=== PATIENT | male | born 1985 | race Caucasian/White ===

== ENCOUNTER 2021-02-25 02:18 | Inpatient (IN) | payer OTHER ==
[~2021-02-25] VITALS: Ht 175.3 cm; Wt 73.5 kg
[2021-02-25 02:32] VITALS: BP_SYST 140; BP_SYST 141; BP_DIAS 73
[2021-02-25] MEDS ORDERED: ZOFRAN IV STA (02:38)
[2021-02-25] MEDS ORDERED: ZOFRAN ONE (02:38)
[2021-02-25] MEDS ORDERED: TORADOL ONE (02:38)
[2021-02-25] MEDS ORDERED: TORADOL IV STA (02:38)
[2021-02-25] MEDS ORDERED: NS 1000ML 1,000 ML ONE ×2 (02:38→03:28)
[2021-02-25 02:47] LABS: BASOPHIL % 0.2 % (0.0-0.2); EOSINOPHIL # 0.2 10^3/uL (0.0-0.2); EOSINOPHIL % 0.9 % (0.0-5.0); LYMPHOCYTES # 4.65 10^3/uL1 (1.0-4.8); LYMPHOCYTES % 26.7 % (24.0-44.0); MEAN CORP HGB 29.7 pg (26-34); MONOCYTES # 1.1 10^3/uL (0.3-0.8); MONOCYTES % 6.4 % (5.0-12.0); NEUTROPHIL # 11.4 10^3/uL (1.8-7.7); NEUTROPHILS % 65.5 % (41.0-85.0); PLATELET COUNT 258 10^3/uL (150-400); RED CELL DISTRIBUTION WIDTH 12.1 % (11.5-14.5)
--- NOTE | 2021-02-25 02:50 | ER.PDOC ---
General Chief Complaint: Abdomen Pain Stated Complaint: VOMITING Time seen by MD: 02:29 Source: patient, family Exam Limitations: no limitations History of Present Illness Timing/Duration: 24 hours, getting worse Severity/Quality: severe, cramping Radiation: other (generalized) Associated Symptoms: diaphoresis, fever/chills, nausea/vomiting Exacerbated by: movements, walking, cough, food Relieved By: nothing Allergies: Coded Allergies: No Known Allergies (Unverified , 02/25/21) Home Meds No Active Prescriptions or Reported Meds Vital Signs First Vital Signs Date Time Temp Pulse Resp B/P (MAP) Pulse Ox O2 Delivery O2 Flow Rate FiO2 02/25/21 02:32 97.9 62 18 98 02/25/21 02:32 140/73 (95) Room Air Last Vital Signs Date Time Temp Pulse Resp B/P (MAP) Pulse Ox O2 Delivery O2 Flow Rate FiO2 02/25/21 02:32 97.9 62 18 140/73 (95) 98 Room Air Past Medical History Medical History: no pertinent history Surgical History: hip, knee Family History Significant Family History: no pertinent family hx Social History Alcohol Use: none Drug Use: none Constitutional: chills EENTM: no symptoms reported Respiratory: no symptoms reported Cardiovascular: no symptoms reported Gastrointestinal: abdominal pain, nausea, poor appetite, poor fluid intake, vomiting Genitourinary: no symptoms reported Musculoskeletal: joint pain, muscle pain, muscle stiffness, other (cramping) Skin: no symptoms reported Psychiatric/Neurological: depressed Endocrine: no symptoms reported All Other Systems: Reviewed and Negative Physical Exam General Appearance: Moderate Distress, Thin HEENT: PERRL/EOMI, Normal ENT Inspection, TMs Normal, Pharynx Normal Neck: Non-Tender, Full Range of Motion, Supple, Normal Inspection Respiratory: lungs clear, normal breath sounds, no respiratory distress Cardiovascular: Normal Peripheral Pulses, Regular Rate, Rhythm, No Edema, No Gallop, No JVD, No Murmur Gastrointestinal: Hypoactive bowel sounds, Guarding, Rebound, Tenderness Back: Normal Inspection, No CVA Tenderness, No Vertebral Tenderness Extremities: Normal Range of Motion, Non-Tender, Normal Inspection, No Pedal Edema, No Calf Tenderness, Normal Capillary Refill, Pelvis Stable Neurologic/Psychiatric: Alert, Oriented x 3 Skin: Diaphoresis, Pallor Results/Orders Results/Orders Orders - JANEY SANDOVAL MD 0.9 % Sodium Chloride (Ns 1000ml) (02/25/21 02:38) Ondansetron Hcl/Pf (Zofran) (02/25/21 02:38) Ketorolac Tromethamine (Toradol) (02/25/21 02:38) Cbc With Auto Diff (02/25/21 02:38) Comprehensive Metabolic Panel (02/25/21 02:38) Amylase (02/25/21 02:38) Lipase (02/25/21 02:38) Helicobacter Pylori (02/25/21 02:38) PT (02/25/21 02:38) Ct Abd/Pel With Iv Contrast (02/25/21 02:38) Partial Thromboplastin Time. (02/25/21 02:38) Urinalysis (02/25/21 02:38) Ondansetron Hcl/Pf (Zofran) (02/25/21 02:38) Ketorolac Tromethamine (Toradol) (02/25/21 02:38) 0.9 % Sodium Chloride (Ns 1000ml) (02/25/21 03:00) Magnesium (02/25/21 02:42) 0.9 % Sodium Chloride (Ns 100ml) (02/25/21 03:21) Promethazine Hcl (Phenergan) (02/25/21 03:22) Promethazine Hcl (Phenergan) (02/25/21 03:18) 0.9 % Sodium Chloride (Ns 1000ml) (02/25/21 03:30) Lorazepam (Ativan) (02/25/21 03:24) 0.9 % Sodium Chloride (Ns 1000ml) (02/25/21 03:28) Lorazepam (Ativan) (02/25/21 03:29) Prochlorperazine Edisylate (Compazine) (02/25/21 04:58) Admit Orders (02/25/21 04:54) Vital Signs Date Time Temp Pulse Resp B/P (MAP) Pulse Ox O2 Delivery O2 Flow Rate FiO2 02/25/21 02:32 97.9 62 18 140/73 (95) 98 Room Air 02/25/21 02:32 97.9 62 18 02/25/21 02:32 97.9 62 18 98 Administered Medications Medications (Trade) Dose Ordered Sig/Kedar Route PRN Reason Start Time Stop Time Status Last Admin Dose Admin Ketorolac Tromethamine (Toradol) 30 mg OT STAT IV 02/25/21 02:38 02/25/21 02:43 DC 02/25/21 02:43 30 MG Lorazepam (Ativan) 0.5 mg STAT STAT IV 02/25/21 03:24 02/25/21 03:26 DC 02/25/21 03:33 0.5 MG Ondansetron HCl (Zofran) 4 mg OT STAT IV 02/25/21 02:38 02/25/21 02:43 DC 02/25/21 02:43 4 MG Promethazine HCl (Phenergan) 25 mg OT STAT IV 02/25/21 03:18 02/25/21 03:24 DC 02/25/21 03:27 25 MG Sodium Chloride 1,000 ml @ 0 mls/hr Q0M ONCE IV 02/25/21 03:00 02/25/21 03:01 DC 02/25/21 02:43 1,200 MLS/HR Sodium Chloride 1,000 ml @ 0 mls/hr Q0M ONCE IV 02/25/21 03:30 02/25/21 03:31 DC 02/25/21 03:30 0 MLS/HR Laboratory Tests Test 02/25/21 02:34 02/25/21 03:10 White Blood Count 17.4 10^3/uL (4.5-11.0) H Red Blood Count 4.75 10^6/uL (4.50-5.90) Hemoglobin 14.1 g/dL (13.9-16.3) Hematocrit 40.8 % (37.0-53.0) Mean Corpuscular Volume 85.9 fL (78-100) Mean Corpuscular Hemoglobin 29.7 pg (26-34) Mean Corpuscular Hemoglobin Concent 34.6 g/dL (33-36.5) Red Cell Distribution Width 12.1 % (11.5-14.5) Platelet Count 258 10^3/uL (150-400) Mean Platelet Volume 12.0 fL (7.8-11.0) H Neutrophils (%) (Auto) 65.5 % (41.0-85.0) Lymphocytes (%) (Auto) 26.7 % (24.0-44.0) Monocytes (%) (Auto) 6.4 % (5.0-12.0) Neutrophils # (Auto) 11.4 10^3/uL (1.8-7.7) H Lymphocytes # (Auto) 4.65 10^3/uL1 (1.0-4.8) Monocytes # (Auto) 1.1 10^3/uL (0.3-0.8) H Absolute Immature Granulocyte (auto 0.06 10^3 u/L (0-2) Absolute Eosinophils (auto) 0.2 10^3/uL (0.0-0.2) Immature Granulocytes % 0.30 % (0.00-0.50) Eosinophils % 0.9 % (0.0-5.0) Basophils % 0.2 % (0.0-0.2) Basophils # 0.0 10^3/uL (0.0-0.1) Prothrombin Time 11.2 SEC (9.6-12.0) Prothrombin Time INR (Non-Therap) 1.0 Activated Partial Thromboplast Time 23.2 SEC (24.67-30.72) Sodium Level 141 mmol/L (132-145) Potassium Level 3.1 mmol/L (3.6-5.2) L Chloride Level 102.0 mmol/L (96-109) Carbon Dioxide Level 27.6 mmol/L (20.0-32) Anion Gap 14.5 Blood Urea Nitrogen 12 mg/dL (7-18) Creatinine 1.23 mg/dL (0.59-1.40) Estimated GFR () 81.0 (>/=60) Est GFR (CKD-EPI)(Non-Afr [place]) 67.0 (>/=60) BUN/Creatinine Ratio 9.0 Glucose Level 133 mg/dL (70-110) H Calcium Level 9.5 mg/dL (8.4-10.5) Magnesium Level 1.7 mg/dL (1.8-2.4) L Total Bilirubin 0.3 mg/dL (0.2-1.0) Aspartate Amino Transferase (AST) 24 U/L (0-35) Alanine Aminotransferase (ALT) 33 U/L (12-78) Alkaline Phosphatase 89 U/L (50-136) Total Protein 7.3 g/dL (6.4-8.2) Albumin 4.3 g/dL (3.4-5.0) Globulin 3.0 Albumin/Globulin Ratio 1.433 Amylase Level 56 U/L (25-115) Lipase 135 U/L (114-286) Helicobacter pylori Screen NEGATIVE (NEGATIVE) Urine Collection Type CCMS Urine Color YELLOW Urine Appearance CLEAR Urine Bilirubin NEGATIVE (NEGATIVE) Urine Ketones NEGATIVE (NEGATIVE) Urine Specific [place] 1.020 (1.005-1.030) Urine pH 5.5 (4.5-8.0) Urine Protein NEGATIVE (NEGATIVE) Urine Urobilinogen 0.2 E.U./dL (0.2) Urine Nitrate NEGATIVE (NEGATIVE) Urine Leukocyte Esterase NEGATIVE (NEGATIVE) Urine Glucose (Auto)(UA) NEGATIVE (NEGATIVE) Urine Blood SMALL (NEGATIVE) H Urine RBC 2-5 RBC/HPF (NONE SEEN) Urine WBC NONE SEEN WBC/HPF (0-2) Urine Squamous Epithelial Cells RARE #/HPF (FEW) Urine Bacteria RARE (NONE SEEN) Progress Progress pt with mild improvement in nausea and vomiting but short lived. continues to vomit bile. discussed lab results and option of admission for further workup. he is in agreement. Consult/PCP Time Consult/PCP Called: 04:37 Consult/PCP: Dr Jennifer roberts to admit Reason/Comments: discussed case/intractable vomiting. recommended fluids, rocephin, blood cx ER DEPART Departure Time of Disposition: 04:42 Disposition: 09 ADMITTED INPATIENT Impression: Primary Impression: Hypokalemia Additional Impressions: Hypomagnesemia Abdominal pain Intractable vomiting with nausea Condition: Stable Referrals: PCP,UNKNOWN (PCP) PRIMARY CARE PROVIDER Scripts No Active Prescriptions or Reported Meds Duration or Time Spent with Pa: 35 Problem Qualifiers JANEY SANDOVAL MD Feb 25, 2021 02:50
[2021-02-25] MEDS ORDERED: NS 1000ML 1,000 ML IV ONE ×3 (03:00→05:30)
[2021-02-25 03:03] LABS: CALCIUM 9.5 mg/dL (8.4-10.5); CARBON DIOXIDE 27.6 mmol/L (20.0-32)
[2021-02-25] MEDS ORDERED: PHENERGAN IV STA (03:18)
[2021-02-25] MEDS ORDERED: NS 100ML 100 ML IV ONE (03:21)
[2021-02-25] MEDS ORDERED: PHENERGAN ONE (03:22)
[2021-02-25] MEDS ORDERED: ATIVAN IV STA (03:24)
--- NOTE | 2021-02-25 03:25 | NUR ---
RAD SODA TESTER LOKI CALLED AT THIS TIME. NOTIFIED OF CT ORDER.
[2021-02-25] MEDS ORDERED: ATIVAN ONE (03:29)
[2021-02-25 03:42] LABS: BILIRUBIN,URINE NEGATIVE (NEGATIVE); UA COLOR YELLOW
[2021-02-25 03:43] LABS: UROBILINOGEN,URINE 0.2 E.U./dL (0.2)
--- NOTE | 2021-02-25 04:27 | DIREP ---
PROCEDURE:CT ABDOMEN/PELVIS W/ CONTRAST COMPARISON:None. INDICATIONS:abd pain/vomiting TECHNIQUE:Axial images were created through the abdomen and pelvis with non-ionic intravenous contrast material. No oral contrast was administered. Sagittal and coronal reconstructions were performed from source images. FINDINGS: LUNG BASES:No suspicious airspace consolidation or pleural effusion. LIVER:Suspect small hepatic cysts. BILIARY:Previous cholecystectomy. PANCREAS:No suspicious pancreatic abnormality. SPLEEN:The spleen is not significantly enlarged. No focal splenic lesion identified. ADRENALS:The adrenal glands are unremarkable. URINARY TRACT:No hydronephrosis or suspicious renal lesion. AORTA/VASCULAR:No aneurysmal dilatation. RETROPERITONEUM:No suspicious retroperitoneal lymphadenopathy. BOWEL/MESENTERY:Mild distal esophageal wall thickening may reflect esophagitis from reported vomiting. No evidence for small bowel obstruction. Mild scattered distal colonic diverticulosis without evidence to suggest acute diverticulitis. [id number] fecal burden. Normal appendix. No free air. ABDOMINAL WALL:No significant hernia. PELVIC ORGANS:Urinary bladder is decompressed, limiting evaluation. Prostate is not enlarged. No free fluid. BONES:No acute abnormality. CONCLUSION: 1. No acute intra-abdominal abnormality. No evidence for small bowel obstruction. Mild scattered distal colonic diverticulosis without evidence to suggest acute diverticulitis. [id number] fecal burden. Normal appendix. 2. Additional findings as discussed above. Dictated by: Manish Guillermo M.D. On 02/25/2021 at 04:20 AM
--- NOTE | 2021-02-25 04:45 | NUR ---
HOSPITALIST DR. SANDOVAL ON PHONE WITH HOSPITALIST AT THIS TIME REGARDING POSSIBLE ADMISSION.
[2021-02-25] MEDS ORDERED: COMPAZINE ONE (04:58)
--- NOTE | 2021-02-25 05:01 | NUR ---
COMPAZINE 10MG IV ADMINISTERED AT THIS TIME FOR CONTINUED VOMITING. PATIENT CONTINUES DRY HEAVING WITH BILE VOMIT NOTED IN BASIN.
[2021-02-25] MEDS ORDERED: ROCEPHIN 1,000 MG in NS 100ML 100 ML IV STA (05:05)
[2021-02-25] MEDS ORDERED: COMPAZINE IV STA (05:07)
[2021-02-25 05:53] VITALS: BP 126/83
--- NOTE | 2021-02-25 05:58 | NUR ---
Pt arrived to floor at 0545. Pt has been medicated for nausea in the ED. Pt is drowsy from the medication. Vital signs taken and are stable. Pt is resting comfortably at this time.
[2021-02-25 07:12] VITALS: BP 126/79
[2021-02-25] MEDS ORDERED: D5LR 1000ML/KCL 40MEQ 1,000 ML IV ONE (09:00)
--- NOTE | 2021-02-25 09:00 | PCM.HP ---
HISTORY & PHYSICAL HISTORY & PHYSICAL DATE OF ADMISSION: February 25, 2021 CHIEF COMPLAINT: Abdominal pain and intractable vomiting for 2 days HISTORY OF PRESENT ILLNESS: 35-year-old male with previous history of chronic pain syndrome on hydrocodone 08/15/2025 3 times a day with Ambien of 10 mg once a day was apparently visiting from [place] to [facility] to him see his sister,And he claims 2 days prior to this admission he developed abdominal pain associated with nausea and vomiting biliary vomitus and passing flatus no bowel movement for last 2 days no diarrhea and no fever chills or rigors and denies any dysuria hematuria or increased frequency of urination Patient denies any runny nose cough sore throat headache photophobia or neck stiffness Denies any trauma to head or any other part of the Body ALLERGIES: No known drug allergies CURRENT MEDICATIONS: Hydrocodone 08/15/2025 1 tablet 3 times a day chronic use Ambien 10 mg once a day PAST MEDICAL HISTORY: Chronic pain syndrome, cholecystectomy for acute cholecystitis SOCIAL HISTORY: Denies smoking alcohol or street drug use currently unemployed living in [place] Living with his and no contact history of similar illnesses FAMILY HISTORY: Family history denies any serious medical problem including inflammatory bowel disease peptic ulcer disease cancer and hypercoagulable status REVIEW OF SYSTEMS: Denies headache have nausea and vomiting bilious vomitus for last 2 days and denies any sore throat runny nose swallowing difficulties chest pain shortness of breath cough or wheezing denies any dysuria hematuria or increased frequency of urination complaining of abdominal pain , Diffuse and not relieved by vomiting aggravated by direct pressureNot tolerating p.o. intake well denies any diarrhea No skin rashes no joint pain VITAL SIGNS: Vital Signs Date Time Temp Pulse Resp B/P (MAP) Pulse Ox O2 Delivery O2 Flow Rate FiO2 02/25/21 07:12 98.5 67 16 126/79 (95) 98 Room Air PHYSICAL EXAMINATION: Patient is awake alert appeared to be in distress but less interactive .Alert awake oriented HEENT: Pupil round react light no neck stiffness no cervical lymphadenopathy no thyromegaly neck supple Lungs: Clear to auscultation bilaterally no rales or rhonchi heard Heart: S1-S2 heard no murmur gallop noted Abdomen: soft questionable diffuse tenderness in all 4 quadrants and voluntary guarding present No masses felt organomegaly not appreciated (Patient not very cooperative with examination) Extremities :no edema no calf tenderness Skin: No rashes noted RECRUITMENT DIRECTOR: Patient is awake alert oriented responding appropriately but hesitant to interact and noncooperative with examination LABORATORY DATA: Laboratory Tests Test 02/25/21 02:34 02/25/21 03:10 White Blood Count 17.4 10^3/uL (4.5-11.0) Red Blood Count 4.75 10^6/uL (4.50-5.90) Hemoglobin 14.1 g/dL (13.9-16.3) Hematocrit 40.8 % (37.0-53.0) Mean Corpuscular Volume 85.9 fL (78-100) Mean Corpuscular Hemoglobin 29.7 pg (26-34) Mean Corpuscular Hemoglobin Concent 34.6 g/dL (33-36.5) Red Cell Distribution Width 12.1 % (11.5-14.5) Platelet Count 258 10^3/uL (150-400) Mean Platelet Volume 12.0 fL (7.8-11.0) Neutrophils (%) (Auto) 65.5 % (41.0-85.0) Lymphocytes (%) (Auto) 26.7 % (24.0-44.0) Monocytes (%) (Auto) 6.4 % (5.0-12.0) Neutrophils # (Auto) 11.4 10^3/uL (1.8-7.7) Lymphocytes # (Auto) 4.65 10^3/uL1 (1.0-4.8) Monocytes # (Auto) 1.1 10^3/uL (0.3-0.8) Absolute Immature Granulocyte (auto 0.06 10^3 u/L (0-2) Absolute Eosinophils (auto) 0.2 10^3/uL (0.0-0.2) Immature Granulocytes % 0.30 % (0.00-0.50) Eosinophils % 0.9 % (0.0-5.0) Basophils % 0.2 % (0.0-0.2) Basophils # 0.0 10^3/uL (0.0-0.1) Prothrombin Time 11.2 SEC (9.6-12.0) Prothrombin Time INR (Non-Therap) 1.0 Activated Partial Thromboplast Time 23.2 SEC (24.67-30.72) Sodium Level 141 mmol/L (132-145) Potassium Level 3.1 mmol/L (3.6-5.2) Chloride Level 102.0 mmol/L (96-109) Carbon Dioxide Level 27.6 mmol/L (20.0-32) Anion Gap 14.5 Blood Urea Nitrogen 12 mg/dL (7-18) Creatinine 1.23 mg/dL (0.59-1.40) Estimated GFR () 81.0 (>/=60) Est GFR (CKD-EPI)(Non-Afr [place]) 67.0 (>/=60) BUN/Creatinine Ratio 9.0 Glucose Level 133 mg/dL (70-110) Calcium Level 9.5 mg/dL (8.4-10.5) Magnesium Level 1.7 mg/dL (1.8-2.4) Total Bilirubin 0.3 mg/dL (0.2-1.0) Aspartate Amino Transf (AST/SGOT) 24 U/L (0-35) Alanine Aminotransferase (ALT/SGPT) 33 U/L (12-78) Alkaline Phosphatase 89 U/L (50-136) Total Protein 7.3 g/dL (6.4-8.2) Albumin 4.3 g/dL (3.4-5.0) Globulin 3.0 Albumin/Globulin Ratio 1.433 Amylase Level 56 U/L (25-115) Lipase 135 U/L (114-286) Helicobacter pylori Screen NEGATIVE (NEGATIVE) Urine Collection Type CCMS Urine Color YELLOW Urine Appearance CLEAR Urine Bilirubin NEGATIVE (NEGATIVE) Urine Ketones NEGATIVE (NEGATIVE) Urine Specific [place] 1.020 (1.005-1.030) Urine pH 5.5 (4.5-8.0) Urine Protein NEGATIVE (NEGATIVE) Urine Urobilinogen 0.2 E.U./dL (0.2) Urine Nitrate NEGATIVE (NEGATIVE) Urine Leukocyte Esterase NEGATIVE (NEGATIVE) Urine Glucose (Auto)(UA) NEGATIVE (NEGATIVE) Urine Blood SMALL (NEGATIVE) Urine RBC 2-5 RBC/HPF (NONE SEEN) Urine WBC NONE SEEN WBC/HPF (0-2) Urine Squamous Epithelial Cells RARE #/HPF (FEW) Urine Bacteria RARE (NONE SEEN) IMAGING: CT of the abdomen and pelvis shows no acute intraabdominal abnormalities no evidence of small bowel obstruction mild scattered distal colonic diverticulosis without diverticulitis mild to moderate fecal burden normal appendix SUMMARY: 35-year-old male with previous history of chronic pain syndrome developed acute onset of GI intolerance and abdominal pain No evidence of intra abdominal or pelvic acute illnesses As per CT scan ASSESSMENT/PLAN: 1. Acute GI intolerance with diffuse abdominal pain nausea and vomiting suspect Acute gastritis versus medication overdose versus withdrawal symptoms 2. Chronic pain Syndrome with chronic narcotic medication intake 3. Electrolyte imbalance will replace and recheck in the morning Plan of management: Start on IV fluid Phenergan as needed Protonix IV continue empiric antibiotic until the culture is finalized, drug screen Pancrease check lipase level and reevaluate the patient in a.m. AUGUSTO VINES MD Feb 25, 2021 09:00
[2021-02-25 11:35] VITALS: BP 109/62
[2021-02-25] MEDS: PROTONIX IV IV SCH (12:17)
[2021-02-25] MEDS: REGLAN IV SCH ×3 (12:17→21:46)
[2021-02-25] MEDS: BENTYL IM PRN ×2 (12:30→12:31)
[2021-02-25] MEDS ORDERED: DURAGESIC 25MCG TD SCH (13:00)
--- NOTE | 2021-02-25 13:00 | NUR ---
IV START 20G IV STARTED IN RIGHT FA AT THIS TIME ASEPTIC TECHNIQUE. BLOOD RETURN NOTED. SECURED WITH TAPE AND TEGADERM. PT DOES NOT FOLLOW COMMANDS. A/OX4. ON IV STICK PT JUMPED AND MOVED AROUND. PT BEGAN GROWLING AT NURSE. ATTEMPTED TO REDIRECT PT. PT STARTED SCREAMING. UPON COMPLETION OF IV INSERTION PT YELLED "FUCK YOU, FUCK YOU ALL" AT THIS NURSE. IN ROOM AND STATED TO PT "YOU NEED TO BE NICE. SHE DID A PERFECT IV. YOU APOLOGIZE TO HER AND THANK HER" PT GROWLED AT AND STATES "THANK YOU"
[2021-02-25] MEDS: D5LR 1000ML/KCL 20MEQ 1,000 ML IV SCH (15:45)
--- NOTE | 2021-02-25 15:46 | NUR ---
THIS NURSE HELD D5LR WITH 20 OF K DUE TO D5LR WITH 40 OF K RUNNING. NON-ADMIN.
[2021-02-25 16:32] VITALS: BP 111/61
[2021-02-25] MEDS: MORPHINE SULFATE IV PRN (21:46)
[2021-02-25 23:54] VITALS: BP 112/70
[2021-02-26] MEDS ORDERED: NS 25ML 25 ML IV ONE ×4 (00:07→19:15)
[2021-02-26] MEDS: PHENERGAN IV PRN ×3 (00:10→19:19)
[2021-02-26] MEDS: TUMS PO PRN ×2 (02:40→08:17)
[2021-02-26] MEDS: D5LR 1000ML/KCL 20MEQ 1,000 ML IV SCH ×2 (02:40→14:07)
[2021-02-26] MEDS: MORPHINE SULFATE IV PRN ×4 (02:41→19:19)
[2021-02-26 04:38] LABS: EOSINOPHIL % 0.1 % (0.0-5.0); LYMPHOCYTES # 1.47 10^3/uL1 (1.0-4.8); LYMPHOCYTES % 10.2 % (24.0-44.0); MEAN CORP HGB 30.1 pg (26-34); MONOCYTES # 0.8 10^3/uL (0.3-0.8); MONOCYTES % 5.4 % (5.0-12.0); NEUTROPHIL # 12.1 10^3/uL (1.8-7.7); NEUTROPHILS % 84.1 % (41.0-85.0); PLATELET COUNT 187 10^3/uL (150-400); RED CELL DISTRIBUTION WIDTH 12.3 % (11.5-14.5)
[2021-02-26 04:54] LABS: CALCIUM 8.8 mg/dL (8.4-10.5); CARBON DIOXIDE 28.2 mmol/L (20.0-32)
[2021-02-26 05:00] VITALS: BP 113/71
[2021-02-26] MEDS: REGLAN IV SCH ×3 (05:59→21:39)
[2021-02-26] MEDS ORDERED: MORPHINE SULFATE ONE (06:33)
[2021-02-26] MEDS: PROTONIX IV IV SCH (08:17)
[2021-02-26 09:00] VITALS: BP 119/67
[2021-02-26] MEDS ORDERED: MAGNESIUM SULF 4 G/100 ML BAG 100 ML IV ONE (09:00)
[2021-02-26] MEDS: PHOS-NAK PACKET PO SCH ×2 (09:27→21:39)
[2021-02-26] MEDS ORDERED: MAGNESIUM SULFATE 50 ML IV ONE ×2 (09:27→13:54)
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
[2021-02-26 16:51] VITALS: BP 105/61
[2021-02-26] MEDS ORDERED: MYLANTA PO PRN (18:30)
[2021-02-26 20:24] VITALS: BP 134/75
[2021-02-26] MEDS ORDERED: AMBIEN PO PRN (21:00)
--- NOTE | 2021-02-27 00:03 | NUR ---
VITALS PT REFUSED TO HAVE VITALS TAKEN AT THIS TIME.
[2021-02-27 01:06] VITALS: BP 119/82
--- NOTE | 2021-02-27 01:11 | NUR ---
PAIN MEDS PT REFUSED VITALS AT MIDNIGHT, AND HAS BEEN SLEEPING PEACEFULLY SINCE HE RECEIVED HIS LAST PAIN MEDS WITH NO S/S OF ANY KIND OF PAIN OR NAUSEA. PT JUST REQUESTED MORE PAIN AND NAUSEA MEDS HIS BLOOD PRESSURE IS 119/82 AND HIS PULSE IS 67. I DISCUSSED WITH THE PT THAT THE DOCTOR WOULD PREFER HE NOT TAKE THE NARCOTIC PAIN MEDS IF HE COULD HOLD OFF ON THEM. HE IS NOT DUE FOR PHENERGAN FOR ANOTHER HOUR AND HE WAS GIVEN REGLAN WITH HIS EVENING MEDS ALSO. PT STARTED DRY HEAVING AFTER HE WAS TOLD THAT HE WAS NOT DUE FOR NAUSEA MEDICATION FOR ANOTHER HOUR. I OFFERED HIM ICE CHIPS AND OFFERED TO HELP IN ANY WAY i COULD OUTSIDE OF MEDICATION, BUT PT REFUSED TO RESPOND WHEN I ASKED. HE IS NOW RESTING PEACEFULLY IN HIS ROOM, WILL CONTINUE TO MONITOR.
[2021-02-27] MEDS ORDERED: NS 25ML 25 ML IV ONE ×2 (02:15→09:16)
[2021-02-27] MEDS: MORPHINE SULFATE IV PRN ×2 (02:23→09:33)
[2021-02-27] MEDS: D5LR 1000ML/KCL 20MEQ 1,000 ML IV SCH (02:23)
[2021-02-27] MEDS: PHENERGAN IV PRN ×2 (02:24→09:33)
[2021-02-27 04:23] VITALS: BP 130/80
[2021-02-27 04:27] LABS: BASOPHIL % 0.2 % (0.0-0.2); EOSINOPHIL # 0.1 10^3/uL (0.0-0.2); EOSINOPHIL % 0.3 % (0.0-5.0); LYMPHOCYTES # 1.89 10^3/uL1 (1.0-4.8); LYMPHOCYTES % 12.2 % (24.0-44.0); MEAN CORP HGB 30.6 pg (26-34); MONOCYTES # 0.9 10^3/uL (0.3-0.8); MONOCYTES % 5.6 % (5.0-12.0); NEUTROPHIL # 12.6 10^3/uL (1.8-7.7); NEUTROPHILS % 81.5 % (41.0-85.0); PLATELET COUNT 195 10^3/uL (150-400); RED CELL DISTRIBUTION WIDTH 12.3 % (11.5-14.5)
[2021-02-27 04:42] LABS: CALCIUM 8.8 mg/dL (8.4-10.5); CARBON DIOXIDE 27.5 mmol/L (20.0-32)
[2021-02-27] MEDS ORDERED: ZOFRAN IV PRN (06:30)
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
[2021-02-27] MEDS: PROTONIX IV IV SCH (09:32)
[2021-02-27] MEDS: PHOS-NAK PACKET PO SCH (09:33)
[2021-02-27 09:45] VITALS: BP 134/89
--- NOTE | 2021-02-27 11:00 | NUR ---
AMA PT PHONED NURSES STATION AND STATES, "MY NEEDS TO LEAVE WE NEED TO GO BACK TO [place]." DR HOUSE ON PHONE WITH PATIENT AND EDUCATED ON IMPORTANCE OF STAYING IN HOSPITAL TO RECEIVE CARE. REINFORCEMENT NEEDED. DR HOUSE SPOKE TO PATIENT AND HE STATES, "YEAH I NEED TO GO HOME TO [place] SO MY CAN HAVE HER HIP SX." EDUCATED ON IMPORTANCE OF STAYING IN HOSPITAL. REINFORCEMENT NEEDED. NO S/S OF DISTRESS NOTED.
--- NOTE | 2021-02-27 11:32 | PRM.PN ---
Subjective Subjective Date: Feb 27, 2021 Time: 11:24 Subjective Number 1 AM started again vomiting unable to tolerate breakfast,Started on Reglan, patient took a hot shower and now feeling better want to eat, Have bowel movement still watery he claims,No fever chills or rigors, No hematochezia,Has abdominal pain Denies urinary symptoms, Denies any respiratory symptoms Patient History: Patient reports no known family medical history. VTE VTE Risk Score VTE Risk: Score 0-1 = Low Risk (Aggressive mobilization; early ambulation; no VTE prophylaxis required) Score 2: Moderate Risk (Intermittent/Pneumatic Compression Device OR Lovenox/Heparin/Coumadin) Score 3-4: High Risk (Intermittent/Pneumatic Compression Device AND Lovenox/Heparin/Coumadin) Score > or =5: Highest Risk (Intermittent/Pneumatic Compression Device AND Lovenox/Heparin/Coumadin) Antico:Hep/LMWH/Coum/Xarelto: No Review of Systems Constitutional: Other (Nausea) Gastrointestinal: Nausea, Abdominal Pain, Diarrhea (Loose stool x2) Allergies: Coded Allergies: No Known Allergies (Unverified , 02/25/21) No Active Prescriptions or Reported Meds Objective Vitals and I/O Vital Signs Date Time Temp Pulse Resp B/P (MAP) Pulse Ox O2 Delivery O2 Flow Rate FiO2 02/27/21 09:46 Room Air 02/27/21 09:45 98.1 53 18 134/89 (104) 100 Room Air 02/27/21 04:23 98.8 65 20 130/80 (97) 100 Room Air 02/27/21 01:06 98.8 67 18 119/82 (94) 98 Room Air 02/26/21 20:25 Room Air 02/26/21 20:24 98.8 70 18 134/75 (94) 97 Room Air 02/26/21 16:51 99.7 56 18 105/61 (76) 97 Room Air 02/26/21 16:27 Room Air 02/26/21 09:00 98.1 71 18 119/67 (84) 99 02/26/21 05:00 98.7 60 18 113/71 (85) 98 Room Air 02/25/21 23:54 98.2 60 18 112/70 (84) 98 Room Air 02/25/21 19:30 Room Air 02/25/21 18:08 Room Air 02/25/21 16:32 97.4 65 18 111/61 (78) 98 Room Air 02/25/21 14:44 Room Air 02/25/21 11:35 97.8 77 18 109/62 (78) 100 Room Air 02/25/21 07:12 98.5 67 16 126/79 (95) 98 Room Air 02/25/21 05:53 98.0 72 18 126/83 (97) 99 Room Air 02/25/21 02:32 97.9 62 18 140/73 (95) 98 Room Air 02/25/21 02:32 97.9 62 18 02/25/21 02:32 97.9 62 18 98 Vital Sign - Last 24 Hours 02/26/21 02/26/21 02/26/21 02/26/21 16:27 16:51 20:24 20:25 Temp 99.7 98.8 Pulse 56 70 Resp 18 18 B/P (MAP) 105/61 (76) 134/75 (94) Pulse Ox 97 97 O2 Delivery Room Air Room Air Room Air Room Air 02/27/21 02/27/21 02/27/21 02/27/21 01:06 04:23 09:45 09:46 Temp 98.8 98.8 98.1 Pulse 67 65 53 Resp 18 20 18 B/P (MAP) 119/82 (94) 130/80 (97) 134/89 (104) Pulse Ox 98 100 100 O2 Delivery Room Air Room Air Room Air Room Air Intake and Output 02/27/21 07:00 Intake Total 1100 ml Balance 1100 ml General: Alert (Vomited bile-stained clear liquid, No food from last night), Oriented X3 (Oriented x4), Cooperative, mild distress HEENT: Atraumatic, PERRLA, EOMI, Mucous membr. moist/pink Neck: Supple, No JVD Lungs: Clear to auscultation, Normal air movement Heart: Regular rate, Normal S1, Normal S2, No murmurs Abdomen: Normal bowel sounds, Soft, No tenderness, Other (No guarding or rigidity, No distention) Extremities: No clubbing, No cyanosis, No edema, Normal pulses, No tenderness/swelling Skin: No rashes, No breakdown, No significant lesion Neuro: Normal speech, Strength at 5/5 X4 ext, Normal tone, Sensation intact All Results(Lab/Rad) Laboratory Tests Test 02/26/21 04:07 White Blood Count 14.4 10^3/uL Red Blood Count 4.15 10^6/uL Hemoglobin 12.5 g/dL Hematocrit 35.5 % Mean Corpuscular Volume 85.5 fL Mean Corpuscular Hemoglobin 30.1 pg Mean Corpuscular Hemoglobin Concent 35.2 g/dL Red Cell Distribution Width 12.3 % Platelet Count 187 10^3/uL Mean Platelet Volume 12.9 fL Neutrophils (%) (Auto) 84.1 % Lymphocytes (%) (Auto) 10.2 % Monocytes (%) (Auto) 5.4 % Neutrophils # (Auto) 12.1 10^3/uL Lymphocytes # (Auto) 1.47 10^3/uL1 Monocytes # (Auto) 0.8 10^3/uL Absolute Immature Granulocyte (auto 0.03 10^3 u/L Absolute Eosinophils (auto) 0.0 10^3/uL Immature Granulocytes % 0.20 % Eosinophils % 0.1 % Basophils % 0.0 % Basophils # 0.0 10^3/uL Sodium Level 141 mmol/L Potassium Level 3.4 mmol/L Chloride Level 105.0 mmol/L Carbon Dioxide Level 28.2 mmol/L Anion Gap 11.2 Blood Urea Nitrogen 7 mg/dL Creatinine 0.94 mg/dL Estimated GFR () 110.5 Est GFR (CKD-EPI)(Non-Afr [place]z) 91.3 BUN/Creatinine Ratio 7.0 Glucose Level 138 mg/dL Calcium Level 8.8 mg/dL Phosphorus Level 2.3 mg/dL Magnesium Level 1.4 mg/dL Total Bilirubin 0.4 mg/dL Aspartate Amino Transf (AST/SGOT) 19 U/L Alanine Aminotransferase (ALT/SGPT) 31 U/L Alkaline Phosphatase 66 U/L Total Protein 6.2 g/dL Albumin 3.6 g/dL Globulin 2.6 Albumin/Globulin Ratio 1.384 Current Medications Medications (Trade) Dose Ordered Sig/Kedar Route PRN Reason Start Time Stop Time Status Last Admin Dose Admin Sodium Chloride 1,000 ml @ ud STK-MED ONCE .ROUTE 02/25/21 02:38 02/25/21 02:38 DC Ondansetron HCl (Zofran) 4 mg STK-MED ONCE .ROUTE 02/25/21 02:38 02/25/21 02:39 DC Ketorolac Tromethamine (Toradol) 30 mg STK-MED ONCE .ROUTE 02/25/21 02:38 02/25/21 02:39 DC Ondansetron HCl (Zofran) 4 mg OT STAT IV 02/25/21 02:38 02/25/21 02:43 DC 02/25/21 02:43 Ketorolac Tromethamine (Toradol) 30 mg OT STAT IV 02/25/21 02:38 02/25/21 02:43 DC 02/25/21 02:43 Sodium Chloride 1,000 ml @ 0 mls/hr Q0M ONCE IV 02/25/21 03:00 02/25/21 03:01 DC 02/25/21 02:43 Sodium Chloride 100 ml @ ud STK-MED ONCE IV 02/25/21 03:21 02/25/21 03:22 DC Promethazine HCl (Phenergan) 25 mg STK-MED ONCE .ROUTE 02/25/21 03:22 02/25/21 03:22 DC Promethazine HCl (Phenergan) 25 mg OT STAT IV 02/25/21 03:18 02/25/21 03:24 DC 02/25/21 03:27 Sodium Chloride 1,000 ml @ 0 mls/hr Q0M ONCE IV 02/25/21 03:30 02/25/21 03:31 DC 02/25/21 03:30 Lorazepam (Ativan) 0.5 mg STAT STAT IV 02/25/21 03:24 02/25/21 03:26 DC 02/25/21 03:33 Sodium Chloride 1,000 ml @ ud STK-MED ONCE .ROUTE 02/25/21 03:28 02/25/21 03:28 DC Lorazepam (Ativan) 2 mg STK-MED ONCE .ROUTE 02/25/21 03:29 02/25/21 03:29 DC Prochlorperazine Edisylate (Compazine) 10 mg STK-MED ONCE .ROUTE 02/25/21 04:58 02/25/21 04:59 DC Ceftriaxone Sodium 1000 mg/ Sodium Chloride 100 ml @ 100 mls/hr OT STAT IV 02/25/21 05:05 02/25/21 06:04 DC 02/25/21 05:22 Sodium Chloride 1,000 ml @ 100 mls/hr Q10H ONCE IV 02/25/21 05:30 02/25/21 09:53 DC 02/25/21 05:43 Prochlorperazine Edisylate (Compazine) 10 mg STAT STAT IV 02/25/21 05:07 02/25/21 05:09 DC 02/25/21 05:19 Potassium Cl/ Dextrose/Lact Ringer's 1,000 ml @ 100 mls/hr Q10H ONCE IV 02/25/21 09:00 02/25/21 18:59 DC 02/25/21 15:48 Potassium Cl/ Dextrose/Lact Ringer's 1,000 ml @ 100 mls/hr Q10H IV 02/25/21 17:00 03/27/21 16:59 02/26/21 02:40 Promethazine HCl (Phenergan) 12.5 mg Q6H PRN IV NAUSEA / VOMITING 02/25/21 09:30 03/27/21 09:29 02/26/21 00:10 Metoclopramide HCl (Reglan) 10 mg Q8HR IV 02/25/21 09:08 03/27/21 09:07 02/26/21 05:59 Dicyclomine HCl (Bentyl) 20 mg Q6HR PRN IM ABDOMINAL PAIN 02/25/21 09:30 02/26/21 15:00 02/25/21 12:31 Pantoprazole Sodium (Protonix Iv) 40 mg DAILY IV 02/25/21 09:30 02/27/21 15:00 02/26/21 08:17 Calcium Carbonate/ Glycine (Tums) 1,000 mg Q4HR PRN PO INDIGESTION 02/25/21 12:00 02/26/21 08:37 DC 02/26/21 08:17 Fentanyl (Duragesic 25mcg) 50 mcg Q72H TD 02/25/21 13:00 03/27/21 12:59 Morphine Sulfate (Morphine Sulfate) 2 mg Q4H PRN IV PAIN 4 - 6 02/25/21 12:30 03/27/21 12:29 02/26/21 08:13 Sodium Chloride 25 ml @ ud STK-MED ONCE IV 02/26/21 00:07 02/26/21 00:07 DC Morphine Sulfate (Morphine Sulfate) 2 mg STK-MED ONCE .ROUTE 02/26/21 06:33 02/26/21 06:33 DC Magnesium Sulfate 50 ml @ ud STK-MED ONCE IV 02/26/21 09:27 02/26/21 09:27 DC Course Sepsis Screening Results: Posi: NEGATIVE Sepsis Qualifier/Stage: NO DEFINITE RISK Duration or Total Time Spent w: 35 Vitals & review Data Vital Sign - Last 24 Hours 02/25/21 02/25/21 02/25/21 02/25/21 11:35 14:44 16:32 18:08 Temp 97.8 97.4 Pulse 77 65 Resp 18 18 B/P (MAP) 109/62 (78) 111/61 (78) Pulse Ox 100 98 O2 Delivery Room Air Room Air Room Air Room Air 02/25/21 02/25/21 02/26/21 19:30 23:54 05:00 Temp 98.2 98.7 Pulse 60 60 Resp 18 18 B/P (MAP) 112/70 (84) 113/71 (85) Pulse Ox 98 98 O2 Delivery Room Air Room Air Room Air Intake and Output 02/26/21 06:59 Output Total 1123 ml Balance -1123 ml Laboratory Tests Test 02/25/21 02:34 02/25/21 03:10 02/25/21 03:16 02/26/21 04:07 White Blood Count 17.4 10^3/uL 14.4 10^3/uL Red Blood Count 4.75 10^6/uL 4.15 10^6/uL Hemoglobin 14.1 g/dL 12.5 g/dL Hematocrit 40.8 % 35.5 % Mean Corpuscular Volume 85.9 fL 85.5 fL Mean Corpuscular Hemoglobin 29.7 pg 30.1 pg Mean Corpuscular Hemoglobin Concent 34.6 g/dL 35.2 g/dL Red Cell Distribution Width 12.1 % 12.3 % Platelet Count 258 10^3/uL 187 10^3/uL Mean Platelet Volume 12.0 fL 12.9 fL Neutrophils (%) (Auto) 65.5 % 84.1 % Lymphocytes (%) (Auto) 26.7 % 10.2 % Monocytes (%) (Auto) 6.4 % 5.4 % Neutrophils # (Auto) 11.4 10^3/uL 12.1 10^3/uL Lymphocytes # (Auto) 4.65 10^3/uL1 1.47 10^3/uL1 Monocytes # (Auto) 1.1 10^3/uL 0.8 10^3/uL Absolute Immature Granulocyte (auto 0.06 10^3 u/L 0.03 10^3 u/L Absolute Eosinophils (auto) 0.2 10^3/uL 0.0 10^3/uL Immature Granulocytes % 0.30 % 0.20 % Eosinophils % 0.9 % 0.1 % Basophils % 0.2 % 0.0 % Basophils # 0.0 10^3/uL 0.0 10^3/uL Prothrombin Time 11.2 SEC Prothrombin Time INR (Non-Therap) 1.0 Activated Partial Thromboplast Time 23.2 SEC Sodium Level 141 mmol/L 141 mmol/L Potassium Level 3.1 mmol/L 3.4 mmol/L Chloride Level 102.0 mmol/L 105.0 mmol/L Carbon Dioxide Level 27.6 mmol/L 28.2 mmol/L Anion Gap 14.5 11.2 Blood Urea Nitrogen 12 mg/dL 7 mg/dL Creatinine 1.23 mg/dL 0.94 mg/dL Estimated GFR () 81.0 110.5 Est GFR (CKD-EPI)(Non-Afr [place]z) 67.0 91.3 BUN/Creatinine Ratio 9.0 7.0 Glucose Level 133 mg/dL 138 mg/dL Calcium Level 9.5 mg/dL 8.8 mg/dL Magnesium Level 1.7 mg/dL 1.4 mg/dL Total Bilirubin 0.3 mg/dL 0.4 mg/dL Aspartate Amino Transf (AST/SGOT) 24 U/L 19 U/L Alanine Aminotransferase (ALT/SGPT) 33 U/L 31 U/L Alkaline Phosphatase 89 U/L 66 U/L Total Protein 7.3 g/dL 6.2 g/dL Albumin 4.3 g/dL 3.6 g/dL Globulin 3.0 2.6 Albumin/Globulin Ratio 1.433 1.384 Amylase Level 56 U/L Lipase 135 U/L Helicobacter pylori Screen NEGATIVE Urine Collection Type CCMS Urine Color YELLOW Urine Appearance CLEAR Urine Bilirubin NEGATIVE Urine Ketones NEGATIVE Urine Specific [place] 1.020 Urine pH 5.5 Urine Protein NEGATIVE Urine Urobilinogen 0.2 E.U./dL Urine Nitrate NEGATIVE Urine Leukocyte Esterase NEGATIVE Urine Glucose (Auto)(UA) NEGATIVE Urine Blood SMALL Urine RBC 2-5 RBC/HPF Urine WBC NONE SEEN WBC/HPF Urine Squamous Epithelial Cells RARE #/HPF Urine Bacteria RARE Urine Opiates Screen PRESUMPTIVE POSITIVE Urine Methadone Screen NEGATIVE Urine Barbiturates Screen NEGATIVE Urine Phencyclidine Screen NEGATIVE Ur Amphetamine/Methamphetamine NEGATIVE Urine MDMA Screen (Ecstasy) NEGATIVE Urine Benzodiazepines Screen NEGATIVE Urine Cocaine Metabolite Screen NEGATIVE Ur Tetrahydrocannabinol (THC) Scrn PRESUMPTIVE POSITIVE Phosphorus Level 2.3 mg/dL Current Medications Medications (Trade) Dose Ordered Sig/Kedar PRN Reason Start Time Stop Time Status Last Admin Dicyclomine HCl (Bentyl) 20 mg Q6HR PRN ABDOMINAL PAIN 02/25/21 09:30 02/26/21 15:00 02/25/21 12:31 Fentanyl (Duragesic 25mcg) 50 mcg Q72H 02/25/21 13:00 03/27/21 12:59 Metoclopramide HCl (Reglan) 10 mg Q8HR 02/25/21 09:08 03/27/21 09:07 02/26/21 05:59 Morphine Sulfate (Morphine Sulfate) 2 mg Q4H PRN PAIN 4 - 6 02/25/21 12:30 03/27/21 12:29 02/26/21 08:13 Pantoprazole Sodium (Protonix Iv) 40 mg DAILY 02/25/21 09:30 02/27/21 15:00 02/26/21 08:17 Potassium Cl/ Dextrose/Lact Ringer's 1,000 ml @ 100 mls/hr Q10H 02/25/21 17:00 03/27/21 16:59 02/26/21 02:40 Promethazine HCl (Phenergan) 12.5 mg Q6H PRN NAUSEA / VOMITING 02/25/21 09:30 03/27/21 09:29 02/26/21 00:10 LEVEL 1 SEPSIS INFECTION CRITE: Abdominal Pain LEVEL 2-SIRS (LIST ALL THAT AP: WBC>[id number] Cardiovascular Evidence: Not Assessed or None Hematologic Evidence: None/Not assessed Hepatic Evidence: None/Not assessed Metabolic Evidence: None/Not assessed Neurological Evidence: None/Not assessed Respiratory Evidence: None/Not assessed Renal Evidence: None/Not assessed O2 Sat by Pulse Oximetry: 100 Assessment/Plan Assessment/Plan Assessment/Plan Dx: 1. Delusional disorder presentation, remitted hx PTSD 2.Cannabinoid use disorder suspect hyperemesis cannabinoid syndrome 3. Chronic pain syndrome 4. Dehydration Plan of management patient wants to leave AGAINST MEDICAL ADVICE he and his was explained his condition and necessity for IV hydration and close monitoring but the patient and family wanted to leave AGAINST MEDICAL ADVICE and we will give a prescription for Reglan and sublingual Zofran and advised to get back to his hospital as soon as possible when they reach home Plan Patient and his was explained the consequences of leaving AGAINST MEDICAL ADVICE and prescription for Reglan and Zofran was given and advised to get into the hospital as soon as possible closer to their home Patient has awake alert oriented and understanding the consequences and voiced understanding and the to And leaving AGAINST MEDICAL ADVICE AUGUSTO VINES MD Feb 27, 2021 11:32
[2021-02-27] MEDS ORDERED: REGLAN IV SCH (12:00)
--- NOTE | 2021-02-27 13:25 | NUR ---
AMA PT SIGNED AMA PAPER AND OFF FLOOR VIA AMBULATION TO GO HOME WITH , IS DRIVING PATIENT HOME IN PATIENT VEHICLE.
[2021-02-28 13:14] LABS: OPIATES Negative (Cutoff=200)
== END 2021-02-27 13:25 | disposition left against medical advice (07) | DRG 392 ==
LOC: ER 02:18 → OBSVTOIN 04:54 → MS 04:54 → INTOOBSV 04:54 → UNDOADMOB 04:54 → UNDODISOB 02-27 13:25
PROVIDERS: ADMIT Internal Medicine; ATTEND Internal Medicine
DX: K52.9 Noninfective gastroenteritis and colitis, unspecified (principal); E87.6 Hypokalemia; E86.0 Dehydration; G89.4 Chronic pain syndrome; F43.10 Post-traumatic stress disorder, unspecified; Z53.29 Procedure and treatment not carried out because of patient's decision for other reasons; R11.2 Nausea with vomiting, unspecified; F22 Delusional disorders; F12.90 Cannabis use, unspecified, uncomplicated; Z90.49 Acquired absence of other specified parts of digestive tract; Z79.891 Long term (current) use of opiate analgesic
CPT/HCPCS: 36415; 74177; 80053; 80307; 80349; 81000; 81003; 82150; 83630; 83690; 83735; 84100; 85025; 85610; 85730; 86677; 87040; 87045; 99285; C9113; G0378; G0480; J0696; J0780; J1885; J2060; J2405; J2550; J2765; J3475; J3490; J7030; J7070; Q9965; J0500

== ENCOUNTER 2021-06-26 15:16 | Emergency (ER) | payer OTHER ==
[~2021-06-26] VITALS: Ht 177.8 cm; Wt 72.6 kg
[2021-06-26 15:40] VITALS: BP 139/84
[2021-06-26] MEDS ORDERED: DILAUDID IV STA (15:50)
[2021-06-26] MEDS ORDERED: ZOFRAN IV STA (15:50)
[2021-06-26] MEDS ORDERED: NS 1000ML 1,000 ML IV STA (15:50)
[2021-06-26 15:54] VITALS: BP 139/84
[2021-06-26] MEDS ORDERED: ZOFRAN ONE (15:57)
[2021-06-26] MEDS ORDERED: DILAUDID ONE (15:58)
[2021-06-26 16:07] LABS: BASOPHIL % 0.2 % (0.0-0.2); EOSINOPHIL % 0.1 % (0.0-5.0); LYMPHOCYTES # 1.44 10^3/uL1 (1.0-4.8); LYMPHOCYTES % 10.4 % (24.0-44.0); MEAN CORP HGB 29.5 pg (26-34); MONOCYTES # 0.3 10^3/uL (0.3-0.8); NEUTROPHIL # 12.1 10^3/uL (1.8-7.7); NEUTROPHILS % 87.1 % (41.0-85.0); PLATELET COUNT 261 10^3/uL (150-400); RED CELL DISTRIBUTION WIDTH 12.1 % (11.5-14.5)
--- NOTE | 2021-06-26 16:09 | ER.PDOC ---
General Chief Complaint: Lower Back Pain or Injury Stated Complaint: FALL;BACK/LEG PAIN Time seen by MD: 16:07 Source: patient Exam Limitations: no limitations History of Present Illness Initial Comments Neck, mid, low back and abdominal pain status post fall from a ladder yesterday. Patient denies hitting his head. He fell on his buttocks. Pain is sharp but denies fecal or urinary incontinence. No numbness or tingling of lower extremities. Occurred: just prior to arrival Severity: moderate Injuries/Pain Location: neck, abdomen, back Context: Lost Balance Loss of Consciousness: No Loss of Consciousness Associated Symptoms: denies symptoms Allergies: Coded Allergies: No Known Allergies (Unverified , 02/25/21) MEDS No Active Prescriptions or Reported Meds Past Medical History Medical History: no pertinent history Surgical History: cholecystectomy Family History Significant Family History: no pertinent family hx Social History Smoking: non-smoker Alcohol Use: none Drug Use: none Review of Systems Constitutional: no symptoms reported Ears, Nose, Mouth, Throat: no symptoms reported Respiratory: no symptoms reported Cardiovascular: no symptoms reported Gastrointestinal: see HPI Musculoskeletal: see HPI All Other Systems: Reviewed and Negative Physical Exam General Appearance: No Apparent Distress, WD/WN Head: No Evidence of Injury Eyes: bilateral eye normal inspection Neck: Tenderness Cardiovascular/Respiratory: Regular Rate, Rhythm, No M/R/G, Normal Peripheral Pulses, No JVD, Normal Breath Sounds, No Respiratory Distress Gastrointestinal: Normal Bowel Sounds, No Organomegaly, No Pulsatile Mass, Non Tender, Soft Back: Vertebral Tenderness Extremities: No Evidence of Injury, Normal Range of Motion, Non-Tender, No Pedal Edema 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, No Motor/Sensory Deficits, Alert, Normal Mood/Affect, Oriented x 3 Skin: Normal Color, Warm/Dry Armani Coma Score Best Eye Response: (4) Open Spontaneously Best Verbal Response: (5) Oriented Best Motor Response: (6) Obeys Commands Results/Orders Results/Orders Orders - ANJUM GR MD Cbc With Auto Diff (06/26/21 15:50) Comprehensive Metabolic Panel (06/26/21 15:50) Ct Cervical Spine (06/26/21 15:50) Ct Thoracic Wo Contrast (06/26/21 15:50) Ct Lumbar Wo Contrast (06/26/21 15:50) Ct Abd/Pel With Iv Contrast (06/26/21 15:50) Hydromorphone Hcl (Dilaudid) (06/26/21 15:50) Ondansetron Hcl/Pf (Zofran) (06/26/21 15:50) 0.9 % Sodium Chloride (Ns 1000ml) (06/26/21 15:50) Ondansetron Hcl/Pf (Zofran) (06/26/21 15:57) Hydromorphone Hcl (Dilaudid) (06/26/21 15:58) Promethazine Hcl (Phenergan) (06/26/21 16:17) Promethazine Hcl (Phenergan) (06/26/21 16:18) Ketorolac Tromethamine (Toradol) (06/26/21 17:05) Ketorolac Tromethamine (Toradol) (06/26/21 17:06) Vital Signs Date Time Temp Pulse Resp B/P (MAP) Pulse Ox O2 Delivery O2 Flow Rate FiO2 06/26/21 15:54 98.8 62 20 139/84 (102) 98 Room Air 06/26/21 15:40 98.8 62 20 98 06/26/21 15:40 98.0 62 20 Administered Medications Medications (Trade) Dose Ordered Sig/Kedar Route PRN Reason Start Time Stop Time Status Last Admin Dose Admin Hydromorphone HCl (Dilaudid) 1 mg STAT STAT IV 06/26/21 15:50 06/26/21 15:55 DC 06/26/21 16:06 1 MG Ketorolac Tromethamine (Toradol) 30 mg STAT STAT IV 06/26/21 17:05 06/26/21 17:06 DC 06/26/21 17:08 30 MG Ondansetron HCl (Zofran) 4 mg STAT STAT IV 06/26/21 15:50 06/26/21 15:55 DC 06/26/21 16:06 4 MG Promethazine HCl (Phenergan) 25 mg STAT STAT IV 06/26/21 16:18 06/26/21 16:19 DC 06/26/21 16:40 25 MG Sodium Chloride 1,000 ml @ 1,200 mls/hr Q50M STAT IV 06/26/21 15:50 06/26/21 16:39 DC 06/26/21 16:06 1,200 MLS/HR Laboratory Tests Test 06/26/21 16:00 White Blood Count 13.9 10^3/uL (4.5-11.0) H Red Blood Count 5.19 10^6/uL (4.50-5.90) Hemoglobin 15.3 g/dL (13.9-16.3) Hematocrit 44.9 % (37.0-53.0) Mean Corpuscular Volume 86.5 fL (78-100) Mean Corpuscular Hemoglobin 29.5 pg (26-34) Mean Corpuscular Hemoglobin Concent 34.1 g/dL (33-36.5) Red Cell Distribution Width 12.1 % (11.5-14.5) Platelet Count 261 10^3/uL (150-400) Mean Platelet Volume 12.1 fL (7.8-11.0) H Neutrophils (%) (Auto) 87.1 % (41.0-85.0) H Lymphocytes (%) (Auto) 10.4 % (24.0-44.0) L Monocytes (%) (Auto) 2.0 % (5.0-12.0) L Neutrophils # (Auto) 12.1 10^3/uL (1.8-7.7) H Lymphocytes # (Auto) 1.44 10^3/uL1 (1.0-4.8) Monocytes # (Auto) 0.3 10^3/uL (0.3-0.8) Absolute Immature Granulocyte (auto 0.03 10^3 u/L (0-2) Absolute Eosinophils (auto) 0.0 10^3/uL (0.0-0.2) Immature Granulocytes % 0.20 % (0.00-0.50) Eosinophils % 0.1 % (0.0-5.0) Basophils % 0.2 % (0.0-0.2) Basophils # 0.0 10^3/uL (0.0-0.1) Sodium Level 138 mmol/L (132-145) Potassium Level 4.2 mmol/L (3.6-5.2) Chloride Level 101.0 mmol/L (96-109) Carbon Dioxide Level 26.5 mmol/L (20.0-32) Anion Gap 14.7 Blood Urea Nitrogen 9 mg/dL (7-18) Creatinine 1.34 mg/dL (0.59-1.40) Estimated GFR () 73.4 (>/=60) Est GFR (CKD-EPI)(Non-Afr [place]) 60.7 (>/=60) BUN/Creatinine Ratio 6.0 Glucose Level 159 mg/dL (70-110) H Calcium Level 10.1 mg/dL (8.4-10.5) Total Bilirubin 0.5 mg/dL (0.2-1.0) Aspartate Amino Transferase (AST) 19 U/L (0-35) Alanine Aminotransferase (ALT) 19 U/L (12-78) Alkaline Phosphatase 95 U/L (50-136) Total Protein 8.0 g/dL (6.4-8.2) Albumin 4.8 g/dL (3.4-5.0) Globulin 3.2 Albumin/Globulin Ratio 1.500 Progress Progress No fracture of C, T and L-spines. 11 mm hypodense right thyroid nodule. Reviewed this finding with the patient who voices understanding and the necessity to follow-up with his PCP. CT abdomen pelvis is unremarkable. Patient's pain is well controlled after he had Dilaudid and Toradol. He feels good to go home. ER DEPART Departure Time of Disposition: 18:02 Disposition: 01 HOME / SELF CARE / HOMELESS Impression: Primary Impression: Back pain Additional Impressions: Nonspecific abdominal pain Back contusion Condition: Improved Referrals: PCP,UNKNOWN (PCP) PRIMARY CARE PROVIDER Additional Instructions: Tylenol 3 Flexeril Ibuprofen 800 mg 3 times a day for 7 days with food Follow-up with your PCP in 2 to 3 days Return to ED if worsening or concerns Scripts No Active Prescriptions or Reported Meds Duration or Time Spent with Pa: 60 min Problem Qualifiers Primary Impression: Back pain Back pain location: back pain in unspecified location Chronicity: acute Back pain laterality: midline Qualified Codes: M54.9 - Dorsalgia, unspecified Additional Impressions: Back contusion Encounter type: initial encounter Laterality: unspecified laterality Qualified Codes: S20.229A - Contusion of unspecified back wall of thorax, initial encounter ANJUM GR MD Jun 26, 2021 16:09
[2021-06-26] MEDS ORDERED: PHENERGAN ONE (16:17)
[2021-06-26] MEDS ORDERED: PHENERGAN IV STA (16:18)
[2021-06-26 16:20] LABS: CALCIUM 10.1 mg/dL (8.4-10.5); CARBON DIOXIDE 26.5 mmol/L (20.0-32)
[2021-06-26] MEDS ORDERED: TORADOL IV STA (17:05)
[2021-06-26] MEDS ORDERED: TORADOL ONE (17:06)
--- NOTE | 2021-06-26 17:09 | DIREP ---
PROCEDURE:CT CERVICAL SPINE WITHOUT CONTRAST TECHNIQUE:Axial cuts were obtained through the cervical spine. The images were viewed at bone settings. Sagittal and coronal reconstructions are provided. COMPARISON:None. INDICATIONS:Pain S/P fall FINDINGS: ALIGNMENT:Normal. VERTEBRAE:Normal. PARASPINAL AREA:Normal. OTHER:An 11 mm hypodense right thyroid nodule is seen. CERVICAL DISC LEVELS C2-C3:Normal. C3-C4:Normal. C4-C5:Normal. C5-C6:Normal. C6-C7:Normal. C7-T1:Normal. CONCLUSION: 1. No fracture or subluxation is demonstrated. 2. An 11 mm hypodense right thyroid nodule is demonstrated. Further evaluation can be performed with thyroid ultrasound. Dictated by: Manolo Craft M.D. On 06/26/2021 at 05:04 PM
--- NOTE | 2021-06-26 17:12 | DIREP ---
PROCEDURE:CT SPINE THORACIC W/O COMPARISON:None. INDICATIONS:Pain S/P fall TECHNIQUE:Multi-planar CT images were obtained and created without intravenous contrast. FINDINGS: VERTEBRAE:Normal. No fracture is demonstrated. ALIGNMENT:Normal. DISCS:Normal. SPINAL CORD/CONUS:Normal. PARASPINAL AREA:An 11 mm hypodense right thyroid nodule is seen. CONCLUSION: 1. Normal study. No thoracic compression fracture is demonstrated. 2. An 11 mm hypodense right thyroid nodule is noted. Further evaluation can be performed with non emergent thyroid ultrasound. Dictated by: Manolo Craft M.D. On 06/26/2021 at 05:08 PM
--- NOTE | 2021-06-26 17:16 | DIREP ---
PROCEDURE: CT LUMBAR SPINE WITHOUT CONTRAST TECHNIQUE:Axial cuts were obtained through the lumbar spine. The images were viewed at bone settings. Sagittal and coronal reconstructions are provided. COMPARISON:None. INDICATIONS:Pain S/P fall FINDINGS: ALIGNMENT:3 mm retrolisthesis is seen of L5 on S1. VERTEBRAE:Normal. No fractures demonstrated. PARASPINAL AREA:Normal. OTHER:No additional findings. LUMBAR DISC LEVELS T12-L1:Normal. L1-L2:Normal. L2-L3:Normal. L3-L4:Normal. L4-L5:Mild disc bulge is seen without canal stenosis or neural foraminal narrowing. L5-S1:Normal. CONCLUSION:No fracture is demonstrated. A minimal retrolisthesis is noted of L5 on S1. A mild disc bulge is seen at L4-5 without canal stenosis or neural foraminal narrowing. Dictated by: Manolo Craft M.D. on 06/26/2021 at 05:11 PM
--- NOTE | 2021-06-26 17:29 | DIREP ---
PROCEDURE:CT ABDOMEN/PELVIS W/ CONTRAST COMPARISON:[facility], CT, CT ABD/PELVIS W/ CONTRAST, 02/25/2021, 03:58 AM. INDICATIONS:Generalized pain S/P fall TECHNIQUE:Axial images were created through the abdomen and pelvis with non-ionic intravenous contrast material. No oral contrast was administered. Sagittal and coronal reconstructions were performed from source images. FINDINGS: LUNG BASES:Normal. No visible pulmonary or pleural disease. LIVER:A small 1 cm cyst is again seen in the anterior left lobe of the liver without significant interval change. BILIARY:Postcholecystectomy changes are seen. PANCREAS:Normal. No lesion, fluid collection, ductal dilatation, or atrophy. SPLEEN:Normal. No enlargement or focal lesion. ADRENALS:Normal. No mass or enlargement. URINARY TRACT:A small sub cm hypodensity is noted in the lower pole of the left kidney which is too small to further characterize by CT and likely represents a cyst. The right kidney is normal. AORTA/VASCULAR:Normal. No aneurysm. RETROPERITONEUM:Normal. No mass or adenopathy. BOWEL/MESENTERY:Normal. There is no intestinal obstruction, free fluid, free air or mesenteric inflammatory changes. Normal appendix. ABDOMINAL WALL:Normal. No mass or hernia. PELVIC ORGANS:Normal. No visible mass. Pelvic organs appropriate for patient age. BONES:Normal for age. No bony lesion or acute fracture. OTHER:Negative. CONCLUSION: Postcholecystectomy changes. No acute abnormalities are seen in the abdomen and pelvis. Dictated by: Manolo Craft M.D. On 06/26/2021 at 05:24 PM
--- NOTE | 2021-06-26 19:00 | NUR ---
PHARMACY CALL SPOKE WITH [facility]. QUESTIONING RX OF T #3, EDP STATES FOR PHARMACY TO NOT FILL THE T#3. ED STATES HE WAS UNAWARE OF PAIN MEDICATIONS PATIENT ALREADY TAKEN.
== END 2021-06-26 18:11 | disposition home or self-care (01) ==
LOC: ER 15:16
DX: S20.229A Contusion of unspecified back wall of thorax, initial encounter (principal); Z79.1 Long term (current) use of non-steroidal anti-inflammatories (NSAID); Z79.899 Other long term (current) drug therapy; Z90.49 Acquired absence of other specified parts of digestive tract; W11.XXXA Fall on and from ladder, initial encounter; Y93.89 Activity, other specified; Y92.89 Other specified places as the place of occurrence of the external cause; Y99.8 Other external cause status
CPT/HCPCS: 36415; 72125; 72128; 72131; 74177; 80053; 85025; 96361; 96374; 96375; 99285; J1170; J1885; J2405; J2550

== ENCOUNTER 2021-06-27 10:07 | Emergency (ER) | payer OTHER ==
[2021-06-27 10:13] VITALS: BP 124/56
[2021-06-27] MEDS ORDERED: ZOFRAN IV STA (10:19)
[2021-06-27] MEDS ORDERED: NS 1000ML 1,000 ML STA (10:19)
[2021-06-27] MEDS ORDERED: NORCO 10MG PO STA (10:33)
[2021-06-27] MEDS ORDERED: ZOFRAN ONE (10:33)
[2021-06-27] MEDS ORDERED: NS 1000ML 1,000 ML ONE (10:33)
[2021-06-27 10:36] LABS: BASOPHIL % 0.1 % (0.0-0.2); LYMPHOCYTES # 1.05 10^3/uL1 (1.0-4.8); LYMPHOCYTES % 8.1 % (24.0-44.0); MEAN CORP HGB 29.8 pg (26-34); MONOCYTES # 0.5 10^3/uL (0.3-0.8); MONOCYTES % 3.9 % (5.0-12.0); NEUTROPHIL # 11.3 10^3/uL (1.8-7.7); NEUTROPHILS % 87.7 % (41.0-85.0); PLATELET COUNT 233 10^3/uL (150-400); RED CELL DISTRIBUTION WIDTH 12.2 % (11.5-14.5)
[2021-06-27 10:52] LABS: CARBON DIOXIDE 26.8 mmol/L (20.0-32)
[2021-06-27] MEDS ORDERED: NORCO 10MG PO ONE (10:56)
[2021-06-27 11:00] VITALS: BP 120/60
--- NOTE | 2021-06-27 12:04 | ER.PDOC ---
General Chief Complaint: Nausea,Vomiting,Diarrhea Stated Complaint: VOMITING,BACK/LEG PAIN Time seen by MD: 10:05 Source: patient Exam Limitations: no limitations History of Present Illness Initial Comments 35 Y M chronic back pain, on oxycodone, has been without his medication for 2 days now, is having withdrawal symptoms, n/v, diarrhea, jitters Severity/Quality: moderate Associated Symptoms (vomiting): freq vomitng Prior symptoms/Treatment: Similar symptoms previous Allergies: Coded Allergies: No Known Allergies (Unverified , 02/25/21) Home Meds No Active Prescriptions or Reported Meds Vital Signs First Vital Signs Date Time Temp Pulse Resp B/P (MAP) Pulse Ox O2 Delivery O2 Flow Rate FiO2 06/27/21 10:13 98.8 76 16 124/56 (78) 98 Room Air Last Vital Signs Date Time Temp Pulse Resp B/P (MAP) Pulse Ox O2 Delivery O2 Flow Rate FiO2 06/27/21 10:13 98.8 76 16 06/27/21 10:13 98 06/27/21 10:13 124/56 (78) Room Air Past Medical History Medical History: other Surgical History: no surgical history Social History Alcohol Use: none Drug Use: Oxy All Other Systems: Reviewed and Negative Physical Exam General Appearance: No Apparent Distress HEENT: Normal ENT Inspection Neck: Normal Inspection Respiratory: normal breath sounds, no respiratory distress Cardiovascular: Normal Peripheral Pulses, No Edema Gastrointestinal: Non Tender, Soft Back: Normal Inspection Extremities: Normal Range of Motion, Normal Inspection, No Pedal Edema Neurologic/Psychiatric: Alert, Oriented x 3 Skin: Normal Color Lymphatic: No Adenopathy Results/Orders Results/Orders Orders - GAIL GARCIA MD Cbc With Auto Diff (06/27/21 10:19) Comprehensive Metabolic Panel (06/27/21 10:19) Lipase (06/27/21 10:19) Urinalysis (06/27/21 10:19) Ondansetron Hcl/Pf (Zofran) (06/27/21 10:19) 0.9 % Sodium Chloride (Ns 1000ml) (06/27/21 10:19) Hydrocodone/Acetaminophen (Hickman 10mg) (06/27/21 10:33) 0.9 % Sodium Chloride (Ns 1000ml) (06/27/21 10:33) Ondansetron Hcl/Pf (Zofran) (06/27/21 10:33) Hydrocodone/Acetaminophen (Hickman 10mg) (06/27/21 10:56) Vital Signs Date Time Temp Pulse Resp B/P (MAP) Pulse Ox O2 Delivery O2 Flow Rate FiO2 06/27/21 10:13 98.8 76 16 06/27/21 10:13 98.8 76 18 98 06/27/21 10:13 98.8 76 16 124/56 (78) 98 Room Air Administered Medications Medications (Trade) Dose Ordered Sig/Kedar Route PRN Reason Start Time Stop Time Status Last Admin Dose Admin Acetaminophen/ Hydrocodone Bitart (Hickman 10mg) 2 each OT STAT PO 06/27/21 10:33 06/27/21 10:34 DC 06/27/21 10:58 2 EACH Ondansetron HCl (Zofran) 4 mg OT STAT IV 06/27/21 10:19 06/27/21 10:25 DC 06/27/21 10:48 4 MG Sodium Chloride 1,000 ml @ 0 mls/hr Q0M STAT IV 06/27/21 10:19 06/27/21 10:25 DC 06/27/21 10:48 1,200 MLS/HR Laboratory Tests Test 06/27/21 10:35 White Blood Count 12.9 10^3/uL (4.5-11.0) H Red Blood Count 4.96 10^6/uL (4.50-5.90) Hemoglobin 14.8 g/dL (13.9-16.3) Hematocrit 42.6 % (37.0-53.0) Mean Corpuscular Volume 85.9 fL (78-100) Mean Corpuscular Hemoglobin 29.8 pg (26-34) Mean Corpuscular Hemoglobin Concent 34.7 g/dL (33-36.5) Red Cell Distribution Width 12.2 % (11.5-14.5) Platelet Count 233 10^3/uL (150-400) Mean Platelet Volume 11.7 fL (7.8-11.0) H Neutrophils (%) (Auto) 87.7 % (41.0-85.0) H Lymphocytes (%) (Auto) 8.1 % (24.0-44.0) L Monocytes (%) (Auto) 3.9 % (5.0-12.0) L Neutrophils # (Auto) 11.3 10^3/uL (1.8-7.7) H Lymphocytes # (Auto) 1.05 10^3/uL1 (1.0-4.8) Monocytes # (Auto) 0.5 10^3/uL (0.3-0.8) Absolute Immature Granulocyte (auto 0.03 10^3 u/L (0-2) Absolute Eosinophils (auto) 0.0 10^3/uL (0.0-0.2) Immature Granulocytes % 0.20 % (0.00-0.50) Eosinophils % 0.0 % (0.0-5.0) Basophils % 0.1 % (0.0-0.2) Basophils # 0.0 10^3/uL (0.0-0.1) Sodium Level 139 mmol/L (132-145) Potassium Level 3.8 mmol/L (3.6-5.2) Chloride Level 100.0 mmol/L (96-109) Carbon Dioxide Level 26.8 mmol/L (20.0-32) Anion Gap 16.0 Blood Urea Nitrogen 12 mg/dL (7-18) Creatinine 1.29 mg/dL (0.59-1.40) Estimated GFR () 76.7 (>/=60) Est GFR (CKD-EPI)(Non-Afr Citizen Of The [place]) 63.4 (>/=60) BUN/Creatinine Ratio 9.0 Glucose Level 129 mg/dL (70-110) H Calcium Level 10.0 mg/dL (8.4-10.5) Total Bilirubin 0.4 mg/dL (0.2-1.0) Aspartate Amino Transferase (AST) 16 U/L (0-35) Alanine Aminotransferase (ALT) 19 U/L (12-78) Alkaline Phosphatase 84 U/L (50-136) Total Protein 7.8 g/dL (6.4-8.2) Albumin 4.6 g/dL (3.4-5.0) Globulin 3.2 Albumin/Globulin Ratio 1.437 Lipase 51 U/L (114-286) L ER DEPART Departure Time of Disposition: 12:03 Disposition: 01 HOME / SELF CARE / HOMELESS Impression: Primary Impression: Nausea and vomiting Condition: Improved Referrals: PCP,UNKNOWN (PCP) PRIMARY CARE PROVIDER Scripts No Active Prescriptions or Reported Meds Duration or Time Spent with Pa: 12m GAIL GARCIA MD Jun 27, 2021 12:04
--- NOTE | 2021-06-27 12:27 | NUR ---
FLUIDS ENTERED ROOM TO DISCHARGE PT, FLUIDS WERE NOT COMPLETE SO TOLD PT I WOULD WAIT UNTIL FLUIDS WERE COMPLETE, PT REFUSED AND STATED HE WAS JUST READY TO GO HOME.
[2021-06-27 12:30] VITALS: BP 115/62
== END 2021-06-27 12:31 | disposition home or self-care (01) ==
LOC: ER 10:07
DX: R11.2 Nausea with vomiting, unspecified (principal); Z79.899 Other long term (current) drug therapy
CPT/HCPCS: 36415; 80053; 83690; 85025; 96361; 96374; 99283; J2405; J7030

== ENCOUNTER 2022-03-18 18:29 | Emergency (ER) | payer OTHER | END 2022-03-18 20:25 | disposition left against medical advice (07) | LOC: ER 18:29 | DX: Z53.21 Procedure and treatment not carried out due to patient leaving prior to being seen by health care provider (principal) ==

== ENCOUNTER 2022-03-20 00:23 | Emergency (ER) | payer OTHER ==
[~2022-03-20] VITALS: Ht 177.8 cm; Wt 72.6 kg
[2022-03-20 00:43] VITALS: BP 129/89
--- NOTE | 2022-03-20 00:46 | ER.PDOC ---
General Chief Complaint: Requesting Medical Care Stated Complaint: SHORT TERM MEMORY LOSS Time seen by MD: 00:46 Source: patient Exam Limitations: no limitations History of Present Illness Initial Comments Pt presents c/o a headache, neck pain, difficulty walking a straight line, blurry vision and memory impairment for the past 7 days. Reported his symptoms started [facility] home, where he was for 3 days without medical care. Stated he has not sought medical care since his release from nursing home. Occurred: last week Severity: moderate Injury/Pain Location: head, neck, back Modifying Factors: improves with other (nothing) Associated Symptoms: headache, trouble walking (in a straight line per pt), vision changes Allergies: Coded Allergies: No Known Allergies (Unverified , 02/25/21) Home Meds No Active Prescriptions or Reported Meds Past Medical History Medical History: other Surgical History: no surgical history Social History Drug Use: Oxy Review of Systems Constitutional: denies fever, denies malaise, denies weakness Eyes: blurred vision Ears: denies pain Nose: denies congestion, denies pain Mouth: denies loose teeth Throat: denies neck stiffness Respiratory: denies cough, denies orthopnea, denies shortness of breath Cardiovascular: denies chest pain Gastrointestinal: denies nausea, denies vomiting Musculoskeletal: back pain, neck pain Skin: denies change in color Psychiatric/Neurological: headache All Other Systems: Reviewed and Negative Physical Exam General Appearance: No Apparent Distress, WD/WN Head: No Evidence of Injury Eyes: bilateral eye normal inspection Ears, Nose, Mouth, Throat: Hearing Grossly Normal, No Evidence of ENT Injury, No Dental Injury Neck: Normal Alignment, Nexus criteria neg, Limited Range of Motion, Painful Range of Motion, Spinous Processes Tender, Tenderness Cardiovascular/Respiratory: Regular Rate, Rhythm, No M/R/G, Normal Peripheral Pulses, No JVD, Normal Breath Sounds, No Respiratory Distress Gastrointestinal: Normal Bowel Sounds, No Organomegaly, No Pulsatile Mass, Soft, Tenderness (LLQ) Back: Vertebral Tenderness (C spine and L spine. Scoliosis noted) Extremities: No Evidence of Injury, Normal Range of Motion, Non-Tender, No Pedal Edema Neurologic/Psychiatric: electrical integrator II-XII NML as Tested, No Motor/Sensory Deficits, Alert, Normal Mood/Affect, Oriented x 3 Skin: Normal Color, Warm/Dry Armani Coma Score Best Eye Response: (4) Open Spontaneously Best Verbal Response: (5) Oriented Best Motor Response: (6) Obeys Commands Results/Orders Results/Orders Orders - LEXX FELDMAN MD Cbc With Auto Diff (03/20/22 01:03) Comprehensive Metabolic Panel (03/20/22 01:03) Urinalysis (03/20/22 01:03) Ct Head Wo Contrast (03/20/22 01:03) Ct Cervical Spine (03/20/22 01:03) Ct Lumbar Wo Contrast (03/20/22 01:03) Drug Scrn Med W Confirmation (03/20/22 01:03) Ibuprofen (Motrin) (03/20/22 02:27) Ibuprofen (Motrin) (03/20/22 02:37) Vital Signs Date Time Temp Pulse Resp B/P (MAP) Pulse Ox O2 Delivery O2 Flow Rate FiO2 03/20/22 00:43 98.9 107 18 129/89 (102) 94 Room Air* 0 21 03/20/22 00:43 98.9 107 18 03/20/22 00:43 98.9 107 18 94 Administered Medications Medications (Trade) Dose Ordered Sig/Kedar Route PRN Reason Start Time Stop Time Status Last Admin Dose Admin Ibuprofen (Motrin) 800 mg STAT STAT PO 03/20/22 02:27 03/20/22 02:28 DC 03/20/22 02:40 800 MG Laboratory Tests Test 03/20/22 01:40 03/20/22 02:10 White Blood Count 11.4 10^3/uL (4.5-11.0) H Red Blood Count 4.32 10^6/uL (4.50-5.90) L Hemoglobin 12.8 g/dL (13.9-16.3) L Hematocrit 38.8 % (37.0-53.0) Mean Corpuscular Volume 89.8 fL (78-100) Mean Corpuscular Hemoglobin 29.6 pg (26-34) Mean Corpuscular Hemoglobin Concent 33.0 g/dL (33-36.5) Red Cell Distribution Width 12.3 % (11.5-14.5) Platelet Count 216 10^3/uL (150-400) Mean Platelet Volume 11.9 fL (7.8-11.0) H Neutrophils (%) (Auto) 71.2 % (41.0-85.0) Lymphocytes (%) (Auto) 19.4 % (24.0-44.0) L Monocytes (%) (Auto) 5.7 % (5.0-12.0) Neutrophils # (Auto) 8.1 10^3/uL (1.8-7.7) H Lymphocytes # (Auto) 2.22 10^3/uL1 (1.0-4.8) Monocytes # (Auto) 0.7 10^3/uL (0.3-0.8) Absolute Immature Granulocyte (auto 0.03 10^3 u/L (0-2) Absolute Eosinophils (auto) 0.4 10^3/uL (0.0-0.2) H Immature Granulocytes % 0.30 % (0.00-0.50) Eosinophils % 3.1 % (0.0-5.0) Basophils % 0.3 % (0.0-0.2) H Basophils # 0.0 10^3/uL (0.0-0.1) Sodium Level 145 mmol/L (132-145) Potassium Level 4.1 mmol/L (3.6-5.2) Chloride Level 106.0 mmol/L (96-109) Carbon Dioxide Level 30.2 mmol/L (20.0-32) Anion Gap 12.9 Blood Urea Nitrogen 12 mg/dL (7-18) Creatinine 1.07 mg/dL (0.59-1.40) Estimated GFR () 94.6 (>/=60) Est GFR (CKD-EPI)(Non-Afr [place]) 78.2 (>/=60) BUN/Creatinine Ratio 11.0 Glucose Level 89 mg/dL (70-110) Calcium Level 9.0 mg/dL (8.4-10.5) Total Bilirubin 0.2 mg/dL (0.2-1.0) Aspartate Amino Transferase (AST) 20 U/L (0-35) Alanine Aminotransferase (ALT) 22 U/L (12-78) Alkaline Phosphatase 82 U/L (50-136) Total Protein 6.7 g/dL (6.4-8.2) Albumin 3.8 g/dL (3.4-5.0) Globulin 2.9 Albumin/Globulin Ratio 1.310 Urine Collection Type RANDOM Urine Color YELLOW Urine Appearance CLEAR Urine Bilirubin NEGATIVE (NEGATIVE) Urine Ketones NEGATIVE (NEGATIVE) Urine Specific [place] 1.020 (1.005-1.030) Urine pH 7.0 (4.5-8.0) Urine Protein NEGATIVE (NEGATIVE) Urine Urobilinogen 0.2 E.U./dL (0.2) Urine Nitrate NEGATIVE (NEGATIVE) Urine Leukocyte Esterase NEGATIVE (NEGATIVE) Urine Glucose (Auto)(UA) NEGATIVE (NEGATIVE) Urine Blood NEGATIVE (NEGATIVE) Urine Opiates Screen PRESUMPTIVE POSITIVE Urine Methadone Screen NEGATIVE (c/o300ng/mL) Urine Barbiturates Screen NEGATIVE (c/o200ng/mL) Urine Phencyclidine Screen NEGATIVE (c/o 25ng/mL) Ur Amphetamine/Methamphetamine NEGATIVE ([id number]/mL) Urine MDMA Screen (Ecstasy) NEGATIVE (c/o300ng/mL) Urine Benzodiazepines Screen PRESUMPTIVE POSITIVE Urine Cocaine Metabolite Screen NEGATIVE (c/o300ng/mL) Ur Tetrahydrocannabinol (THC) Scrn PRESUMPTIVE POSITIVE (c/o Progress Progress CT Head - negative. EKG/XRAY/CT/US CT Comments: CT C and L spine: Negative for any acute process. Small dorsal bulge L4-L5. ER DEPART Departure Time of Disposition: 02:12 Disposition: 01 HOME / SELF CARE / HOMELESS Impression: Primary Impression: Memory changes Additional Impressions: Neck pain, acute Low back pain Drug abuse Condition: Stable Referrals: PCP,UNKNOWN (PCP) PRIMARY CARE PROVIDER Scripts No Active Prescriptions or Reported Meds Duration or Time Spent with Pa: 20mins Problem Qualifiers LEXX FELDMAN MD March 20, 2022 00:46
[2022-03-20 01:49] LABS: BASOPHIL % 0.3 % (0.0-0.2); EOSINOPHIL # 0.4 10^3/uL (0.0-0.2); EOSINOPHIL % 3.1 % (0.0-5.0); LYMPHOCYTES # 2.22 10^3/uL1 (1.0-4.8); LYMPHOCYTES % 19.4 % (24.0-44.0); MEAN CORP HGB 29.6 pg (26-34); MONOCYTES # 0.7 10^3/uL (0.3-0.8); MONOCYTES % 5.7 % (5.0-12.0); NEUTROPHIL # 8.1 10^3/uL (1.8-7.7); NEUTROPHILS % 71.2 % (41.0-85.0); PLATELET COUNT 216 10^3/uL (150-400); RED CELL DISTRIBUTION WIDTH 12.3 % (11.5-14.5)
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
[2022-03-20 02:17] LABS: BILIRUBIN,URINE NEGATIVE (NEGATIVE); UROBILINOGEN,URINE 0.2 E.U./dL (0.2)
[2022-03-20 02:17] LABS: CARBON DIOXIDE 30.2 mmol/L (20.0-32)
[2022-03-20] MEDS ORDERED: MOTRIN PO STA (02:27)
[2022-03-20] MEDS ORDERED: MOTRIN ONE (02:37)
== END 2022-03-20 02:44 | disposition home or self-care (01) ==
LOC: ER 00:23
DX: R41.3 Other amnesia (principal); F19.10 Other psychoactive substance abuse, uncomplicated; H53.8 Other visual disturbances; M54.2 Cervicalgia; M54.50 Low back pain, unspecified
CPT/HCPCS: 36415; 70450; 72125; 72131; 80053; 80307; 80346; 80349; 81003; 85025; 99284